=== PATIENT | female | born 1970 | race Caucasian/White ===

== ENCOUNTER 2017-09-10 16:44 | Inpatient (IN) | payer BC, OTHER ==
[~2017-09-10] VITALS: Ht 170.2 cm; Wt 93.4 kg
[2017-09-10] MEDS ORDERED: diphenhydrAMINE 50 MG CAPSULE PO PRN (23:00)
[2017-09-10] MEDS ORDERED: MIRALAX 17 GM POWD.PACK PO PRN (23:00)
[2017-09-10] MEDS ORDERED: LORAZEPAM 1 MG TABLET PO PRN ×2 (23:00)
[2017-09-10] MEDS ORDERED: MAG HYDROX/AL HYDROX/SIMETH 30 ML LIQUID UDC PO PRN (23:00)
[2017-09-10] MEDS ORDERED: ONDANSETRON ODT 4 MG TAB.RAPDIS SL PRN (23:00)
[2017-09-10] MEDS ORDERED: ONDANSETRON 4 MG/2 ML VIAL IM PRN (23:00)
[2017-09-10] MEDS: THIAMINE HCL 100 MG TABLET PO SCH (23:00)
[2017-09-10] MEDS ORDERED: LOPERAMIDE HCL 2 MG CAPSULE PO PRN ×2 (23:00)
[2017-09-10] MEDS ORDERED: LORAZEPAM 2 MG/1 ML VIAL IM PRN (23:00)
--- NOTE | 2017-09-10 23:30 | NUR ---
Pre admission note Pt seen in intake office. Pt noted to be intoxicated but in stable condition. V/S WNL. Policies on medication disposal explained to and understood by patient. Will admit to unit. Will continue to monitor.
--- NOTE | 2017-09-10 23:58 | NUR ---
Admission note Pt is a 47 yo female, A+Ox4, presenting to [facility] for ETOH withdrawal. Pt noted to be intoxicated but in stable condition. Pt appears flush in face, tremulous, anxious, agitated, restless, and notably sweaty. Pt has Allergies to Sulfa, is on Full code status, and on Regular diet. Pt is 5'7" in height and 206 LBS in weight. Pt has medical HX of HTN, Neuropathy, IBSD, Colon resection, Asthma, Depression, Anxiety, GERD, Ileostomy, and Gall bladder removal. Pt has family HX of Kidney replacement and macular degeneration from Father. Pt has a primary care provider named Dr. Joaquin. Pt has been drinking alcohol for 36 years (2 years currently), has reached a level of 1 pint- 2 pints/daily, and last drink was 1 shot and 1 beer on 09-10-17 @2100. Pt has been taking home medications which have all been reconciled in [facility] for MD review. Pt has HX of previous detox/rehab for 30 days @ [facility] in [place], [place] in 2006. Pt states "My last time sober was in 2016 for 18 days. Pt has been a cigarette smoker for 33 years and has reached a level of 20/daily. Pt states "I am here because one of my coworkers and he was a heavy drinker so that is what made me realize that i really need to get help for myself". Pt states " I usually drink myself to sleep so i hope i don't have a hard time sleeping". 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 Pt states "I just don't know how to quit drinking on my own so i am glad to be in a hospital setting where i am safe". Pt noted with an odor of alcohol coming off of her body and very messy hair. V/S WNL. Respirations even and unlabored. Will continue to monitor. Addendum: 09/11/17 at 0533 by ADALBERTO JAY LVN 1-2 pints Mary barrera
[2017-09-11 00:32] LABS: *URINE HCG, QUAL NEGATIVE (NEGATIVE)
[2017-09-11 00:42] LABS: *AMPHETAMINE, URINE NEGATIVE (NEGATIVE); *BARBITURATE, URINE NEGATIVE (NEGATIVE); *CANNABINOID, URINE NEGATIVE (NEGATIVE); *COCCAINE, URINE NEGATIVE (NEGATIVE); *OPIATE, URINE NEGATIVE (NEGATIVE); *PHENCYCLIDINE SCREEN,URINE NEGATIVE (NEGATIVE)
[2017-09-11 00:45] VITALS: BP 165/98
[2017-09-11 00:54] LABS: BASOPHILS # (AUTO) 0.1 K/uL (0.0-8.0); BASOPHILS % (AUTO) 1.1 % (0.0-2.0); EOSINOPHILS # (AUTO) 0.2 K/uL (0.0-0.7); EOSINOPHILS % (AUTO) 3.1 % (0.0-7.0); HEMOGLOBIN 16.3 g/dL (10.9-14.3); LYMPHOCYTES # (AUTO) 3.9 K/uL (20.0-40.0); LYMPHOCYTES % (AUTO) 50.2 % (20.5-51.5); MEAN CORPUSCULAR HEMOGLOBIN 35.3 uug (24.7-32.8); MEAN CORPUSCULAR HGB CONC 35 g/dL (32.3-35.6); MEAN CORPUSCULAR VOLUME 101.8 fL (75.5-95.3); MONOCYTES # (AUTO) 0.6 K/uL (2.0-10.0); MONOCYTES % (AUTO) 8.2 % (0.0-11.0); NEUTROPHILS # (AUTO) 2.9 K/uL (1.8-8.9); NEUTROPHILS % (AUTO) 37.4 % (38.5-71.5); PLATELET COUNT (AUTO) 205 K/uL (179-408); RED BLOOD CELL COUNT(AUTO) 4.62 MIL/uL (3.63-4.92); WHITE BLOOD COUNT (AUTO) 7.7 K/uL (3.8-11.8)
[2017-09-11] MEDS ORDERED: LOSA1TAB36 PO (01:15)
[2017-09-11] MEDS ORDERED: HYDR12.5 PO (01:15)
[2017-09-11] MEDS ORDERED: HYDR50CA5 PO (01:15)
[2017-09-11] MEDS ORDERED: LURA40TA PO (01:15)
[2017-09-11] MEDS ORDERED: ONDA4TAB10 PO (01:15)
[2017-09-11] MEDS ORDERED: MAGN400C PO (01:15)
[2017-09-11] MEDS ORDERED: HYOS0.1273 PO (01:15)
[2017-09-11] MEDS ORDERED: CITA40TA11 PO (01:15)
[2017-09-11] MEDS ORDERED: ERGO2500 PO (01:15)
[2017-09-11] MEDS ORDERED: PREG200C PO (01:15)
[2017-09-11] MEDS ORDERED: OMEP20TA5 PO (01:15)
[2017-09-11] MEDS ORDERED: CHOL4PAC2 PO (01:15)
[2017-09-11] MEDS ORDERED: ALBU8.5H8 IH (01:15)
[2017-09-11 01:16] LABS: BILIRUBIN,TOTAL 0.4 mg/dL (0.2-1.0); CREATININE 1.1 mg/dL (0.6-1.3); TOTAL PROTEIN, SERUM 8.2 g/dL (6.4-8.2)
[2017-09-11] MEDS ORDERED: MAGNESIUM OXIDE 400 MG TABLET PO ONE ×2 (01:30→10:00)
[2017-09-11 01:36] LABS: THYROID STIMULATING HORMONE 0.23 mIU/mL (0.358-3.740)
[2017-09-11] MEDS: hydrALAZINE HCL 50 MG TABLET PO PRN ×2 (02:05→08:35)
--- NOTE | 2017-09-11 02:05 | NUR ---
PRN Hydralazine Pt noted with b/p 165/98. PRN Hydralazine given and tolerated well. Will reassess within 1 HR. Will continue to monitor.
--- NOTE | 2017-09-11 03:02 | NUR ---
PRN Hydralazine Reassessment Medication effective. B/p reduced to 144/88. No s/s of ASE noted at this time. Respirations even and unlabored. Will continue to monitor.
[2017-09-11 04:44] VITALS: BP 149/70
--- NOTE | 2017-09-11 07:00 | NUR ---
End of shift note Newly admitted patient. Pt was continuously noted with anxiety, tremors, restlessness, and agitation. Pt spent majority of shift in room except to get food from the kitchen. Pt was given PRN Hydralazine @0205. Pt slept for a total of 5 HRS. Last CIWA: 6 @0400. Respirations even and unlabored. Will endorse to day shift nurse.
--- NOTE | 2017-09-11 07:30 | NUR ---
START OF SHIFT Pt 47 y/o female admitted for etoh withdrawal. Pt received in room on bed awake. Pt alert and oriented to name, placea, and time. Perrla. Skin warm and moist to touch. Respirations even and unlabored. Bilateral hand tremors noted. Pt anxious and restless this morning. Pt appears disheveled and unkempt. Open empty water bottles scattered throughout the room. Encouraged to maintain hygiene. It was reported that pt slept for 5 hours last night. Last reported ciwa=6 @0400. Pt is on a 5 day ativan taper and is on day 1. Bed on lowest position with side railsx 2 up for safety. Call light within reach.
[2017-09-11 08:00] VITALS: BP 152/84
[2017-09-11] MEDS: MULTIVITAMINS,THERAPEUTIC TABLET PO SCH (08:34)
[2017-09-11] MEDS: LORAZEPAM 1 MG TABLET PO SCH ×4 (08:34→20:45)
[2017-09-11] MEDS: THIAMINE HCL 100 MG TABLET PO SCH (08:35)
[2017-09-11] MEDS: FOLIC ACID 1 MG TABLET PO SCH (08:35)
[2017-09-11] MEDS: IBUPROFEN 400 MG TABLET PO PRN (08:35)
--- NOTE | 2017-09-11 08:42 | NUR ---
PRN Pt with bp =152/84. Hyrdralazine po prn per MD order given and tolerated well.
--- NOTE | 2017-09-11 08:43 | NUR ---
PRN Pt with with c/o generalized pain 5/10. Motrin po prn per MD order given and tolerated well.
[2017-09-11] MEDS ORDERED: TUBERCULIN,PURIF.PROT.DERIV. 5 TU/0.1 ML TEST ID ONE (09:00)
--- NOTE | 2017-09-11 09:43 | NUR ---
PRN EVAL pt observed on bed watching television. Pt states pain 4/10.
--- NOTE | 2017-09-11 09:43 | NUR ---
PRN EVAL Pt with up=082/88.
[2017-09-11 12:16] VITALS: BP 130/85
[2017-09-11] MEDS ORDERED: NICOTINE POLACRILEX 4 MG GUM-PK OF TEN BC PRN (12:30)
[2017-09-11] MEDS ORDERED: NICOTINE 14 MG/24HR PATCH TD PRN (12:30)
[2017-09-11] MEDS: LOSARTAN HCTZ PO SCH (12:47)
[2017-09-11] MEDS: LYRICA 200 MG PO SCH (12:47)
[2017-09-11 17:12] VITALS: BP 132/77
--- NOTE | 2017-09-11 19:05 | NUR ---
END OF SHIFT Pt 47 y/o female admitted for etoh withdrawal. Pt alert and oriented to name, placea, and time. Perrla. Skin warm and moist to touch. Respirations even and unlabored. Bilateral hand tremors noted. Pt anxious and restless this morning. Pt appears disheveled and unkempt. Open empty water bottles scattered throughout the room. Encouraged to maintain hygiene. Pt observed isolative to room throughout the day, mostly watching television. Pt did not attend group activity. Pt was seen by MD today. Pt medication compliant and tolerated well. No ASE noted. Ciwa=11@0900, 12@1200, and 11@1600. Pt is on a 5 day ativan taper and is on day 1. Bed on lowest position with side rails x2 up for safety. Call light within reach.
--- NOTE | 2017-09-11 19:11 | NUR ---
Start of shift note Received report from day shift nurse. Pt is a 47 yo male, A+Ox4, presenting to [facility] for ETOH withdrawal. Pt is on 5 day Ativan toper, tolerated well. Pt has HX of Neuropathy, Asthma, GERD, HTN, anxiety, and depression which will be monitored during shift. Pt noted with anxiety, agitation, and restlessness. Respirations even and unlabored. Will continue to monitor.
[2017-09-11 20:05] VITALS: BP 149/87
[2017-09-11] MEDS ORDERED: PATIENT MAY USE OWN MED- MD OK PO SCH (21:00)
[2017-09-11] MEDS: CHOLESTYRAMINE PO PRN (21:06)
[2017-09-11] MEDS: HYOSCYAMINE 0.125 MG SL PRN (21:07)
--- NOTE | 2017-09-11 21:07 | NUR ---
PRN Cholestyramine and Hyoscyamine Pt c/o abdominal pain, upset stomach, and diarrhea and requested for PRN Cholestyramine and Hyoscyamine. Medications given and tolerated well. Will reassess within 1 HR. Will continue to monitor.
--- NOTE | 2017-09-11 22:07 | NUR ---
PRN Cholestyramine and Hyoscyamine Reassessment Pt expresses reduction in abdominal pain and upset stomach. No s/s of ASE noted at this time. Respirations even and unlabored. Will continue to monitor.
[2017-09-11] MEDS: TRAZODONE 50 MG TABLET PO PRN (23:17)
--- NOTE | 2017-09-11 23:17 | NUR ---
PRN Trazodone Pt c/o inability to sleep and requested for PRN Trazodone. Medication given and tolerated well. Will reassess within 1 HR. Will continue to monitor.
--- NOTE | 2017-09-12 00:15 | NUR ---
PRN Trazodone Reassessment Medication effective. Pt is resting well in bed. No s/s of ASE noted at this time. Respirations even and unlabored. Will continue to monitor.
[2017-09-12 00:37] VITALS: BP 145/87
[2017-09-12 04:38] VITALS: BP 147/82
--- NOTE | 2017-09-12 07:00 | NUR ---
End of shift note Pt was continuously noted to be agitated, anxious, and restless. Pt was out of room frequently to get food from kitchen, to interact with other patients in recreational room, and to go smoke on smoking patio. Pt was given PRN Cholestyramine and Hyoscyamine @2106 and PRN Trazodone @2316. Pt slept for a total of 7 HRS. Last CIWA: 10 @0400. Respirations even and unlabored. Will endorse to day shift nurse.
--- NOTE | 2017-09-12 07:30 | NUR ---
START OF SHIFT Pt 47 y/o female admitted for etoh withdrawal. Pt received in room on bed awake. Pt alert and oriented to name, place, and time. Perrla. Skin warm and moist to touch. Respirations even and unlabored. Bilateral hand tremors noted. Pt anxious and agitated this morning. Pt appears disheveled and unkempt. Food wrappings scattered throughout the room. Encouraged to maintain hygiene. It was reported that pt slept for 7 hours last night. Last reported ciwa=10 @2100. Pt is on a 5 day ativan taper and is on day 2. Bed on lowest position with side rails x 2 up for safety. Call light within reach.
[2017-09-12 07:52] LABS: CREATININE 0.9 mg/dL (0.6-1.3); MAGNESIUM 1.6 mg/dL (1.8-2.4); PHOSPHOROUS 3.8 mg/dL (2.5-4.9); POTASSIUM 3.6 mmol/L (3.5-5.1)
[2017-09-12 08:00] VITALS: BP 135/81
[2017-09-12 08:04] LABS: THYROID STIMULATING HORMONE 0.136 mIU/mL (0.358-3.740)
[2017-09-12] MEDS ORDERED: LOSARTAN HCTZ PO SCH (09:00)
[2017-09-12] MEDS ORDERED: PREGABALIN 200 MG PO SCH (09:00)
[2017-09-12] MEDS: LOSARTAN HCTZ PO SCH (09:15)
[2017-09-12] MEDS: LORAZEPAM 1 MG TABLET PO SCH ×3 (09:15→20:46)
[2017-09-12] MEDS: FOLIC ACID 1 MG TABLET PO SCH (09:15)
[2017-09-12] MEDS: THIAMINE HCL 100 MG TABLET PO SCH (09:15)
[2017-09-12] MEDS: MULTIVITAMINS,THERAPEUTIC TABLET PO SCH (09:15)
[2017-09-12] MEDS: CITALOPRAM 20 MG TABLET PO SCH (09:15)
[2017-09-12] MEDS: OMEPRAZOLE 20MG PO SCH (09:16)
[2017-09-12] MEDS: LYRICA 200 MG PO SCH ×2 (09:16→21:00)
[2017-09-12 11:07] LABS: HEPATITIS B SURFACE AG Negative (Negative)
[2017-09-12] MEDS ORDERED: BENZOCAINE/MENTH/CETYLPYRD LOZENGE MM PRN (11:15)
[2017-09-12 12:00] VITALS: BP 127/75
[2017-09-12] MEDS ORDERED: MAGNESIUM OXIDE 400 MG TABLET PO ONE (12:00)
--- NOTE | 2017-09-12 13:24 | NUR ---
Therapist prompted client to attend all groups while in treatment to increase feelings of being connected to others and not be isolated in bedroom. Therapist explained the benefits of attending groups such as learning new coping tools, learning about feelings/emotions and being able to learn to decrease negative feelings and thoughts.
[2017-09-12 16:00] VITALS: BP 137/85
--- NOTE | 2017-09-12 17:15 | NUR ---
PRN Pt with ciwa=9. Ativan 1mg po prn per MD order given and tolerated well.
--- NOTE | 2017-09-12 18:15 | NUR ---
PRN EVAL Pt with ciwa=4.
--- NOTE | 2017-09-12 18:44 | NUR ---
END OF SHIFT Pt 47 y/o female admitted for etoh withdrawal. Pt alert and oriented to name, placea, and time. Perrla. Skin warm and moist to touch. Respirations even and unlabored. Bilateral hand tremors noted. Pt anxious and restless this morning. Pt appears disheveled and unkempt. Open empty water bottles scattered throughout the room. Encouraged to maintain hygiene. Pt observed mostly isolative to room today. Pt did not attend group activity. Pt was seen by MD today. Pt medication compliant and tolerated well. No ASE noted. Ciwa=9@0900, 4@1200, and 9@1600. Pt is on a 5 day ativan taper and is on day 2. Bed on lowest position with side rails x2 up for safety. Call light within reach.
--- NOTE | 2017-09-12 19:12 | NUR ---
Start of shift note Received report from day shift nurse. Pt is a 47 yo female, A+Ox4, presenting to [facility] for ETOH withdrawal. Pt noted to be anxious, agitated, and restless. Pt has HX of Asthma, Neuropathy, HTN, GERD, Anxiety, and depression which will be monitored during shift. Pt is on 5 day Ativan taper, tolerated well. Respirations even and unlabored. Will continue to monitor.
[2017-09-12 20:33] VITALS: BP 146/86
[2017-09-12] MEDS: TRAZODONE 50 MG TABLET PO PRN (23:09)
--- NOTE | 2017-09-12 23:09 | NUR ---
PRN Trazodone Pt c/o inability to sleep and requested for PRN Trazodone. Medication given and tolerated well. Will reassess within 1 HR. Will continue to monitor.
[2017-09-13 00:35] VITALS: BP 116/62
[2017-09-13 04:13] VITALS: BP 119/68
--- NOTE | 2017-09-13 06:50 | NUR ---
End of shift note Pt was continuously noted with anxiety, agitation, and restlessness. Pt was out of room frequently to get food from kitchen, to go smoke on smoking patio, and to interact with other patients in recreational room. Pt was given PRN Trazodone @2309 for inability to sleep. Medication was effective. No s/s of ASE noted. Pt slept for a total of 8 HRS. Last CIWA: 8 @0400. Respirations even and unlabored. Will endorse to day shift nurse.
--- NOTE | 2017-09-13 07:30 | NUR ---
START OF SHIFT Pt 47 y/o female admitted for etoh withdrawal. Pt received in room on bed with eyes closed resting, but easily arousable to name. Pt alert and oriented to name, place, and time. Perrla. Skin warm and moist to touch. Respirations even and unlabored. Bilateral hand tremors noted. Pt appears disheveled and unkempt. Clothes scattered throughout the room. Encouraged to maintain hygiene. It was reported that pt slept for 8 hours last night. Last reported ciwa=8 @2100. Pt is on a 5 day ativan taper and is on day 3. Bed on lowest position with side rails x 2 up for safety. Call light within reach.
[2017-09-13 08:00] VITALS: BP 129/72
[2017-09-13 08:42] LABS: BASOPHILS % (AUTO) 0.8 % (0.0-2.0); EOSINOPHILS # (AUTO) 0.3 K/uL (0.0-0.7); EOSINOPHILS % (AUTO) 5.6 % (0.0-7.0); HEMATOCRIT 41.8 % (31.2-41.9); HEMOGLOBIN 14.5 g/dL (10.9-14.3); LYMPHOCYTES # (AUTO) 1.8 K/uL (20.0-40.0); LYMPHOCYTES % (AUTO) 30.2 % (20.5-51.5); MEAN CORPUSCULAR HEMOGLOBIN 35.6 uug (24.7-32.8); MEAN CORPUSCULAR HGB CONC 35 g/dL (32.3-35.6); MEAN CORPUSCULAR VOLUME 102.4 fL (75.5-95.3); MONOCYTES # (AUTO) 0.4 K/uL (2.0-10.0); MONOCYTES % (AUTO) 6.8 % (0.0-11.0); NEUTROPHILS # (AUTO) 3.3 K/uL (1.8-8.9); NEUTROPHILS % (AUTO) 56.6 % (38.5-71.5); PLATELET COUNT (AUTO) 152 K/uL (179-408); RED BLOOD CELL COUNT(AUTO) 4.08 MIL/uL (3.63-4.92); WHITE BLOOD COUNT (AUTO) 5.9 K/uL (3.8-11.8)
[2017-09-13 08:50] LABS: CREATININE 0.9 mg/dL (0.6-1.3); MAGNESIUM 1.5 mg/dL (1.8-2.4); POTASSIUM 3.5 mmol/L (3.5-5.1)
--- NOTE | 2017-09-13 09:28 | NUR ---
PRN Pt states has some difficulty breathing. Ventolin inhaler prn per MD order given and tolerated well.
[2017-09-13] MEDS: CITALOPRAM 20 MG TABLET PO SCH (09:29)
[2017-09-13] MEDS: FOLIC ACID 1 MG TABLET PO SCH (09:29)
[2017-09-13] MEDS: THIAMINE HCL 100 MG TABLET PO SCH (09:29)
[2017-09-13] MEDS: LORAZEPAM 1 MG TABLET PO SCH ×2 (09:29→12:04)
[2017-09-13] MEDS: LYRICA 200 MG PO SCH ×2 (09:29→20:42)
[2017-09-13] MEDS: OMEPRAZOLE 20MG PO SCH (09:29)
[2017-09-13] MEDS: MULTIVITAMINS,THERAPEUTIC TABLET PO SCH (09:29)
[2017-09-13] MEDS: LOSARTAN HCTZ PO SCH (09:30)
[2017-09-13] MEDS: CHOLESTYRAMINE PO PRN (09:34)
--- NOTE | 2017-09-13 09:34 | NUR ---
PRN Pt states has some loose stool. Cholestyramine powder mix prn per MD order given and tolerated well.
--- NOTE | 2017-09-13 10:28 | NUR ---
PRN EVAL Pt denies any dyspnea at this time.
--- NOTE | 2017-09-13 10:34 | NUR ---
PRN EVAL Pt denies any loose stool at this time.
[2017-09-13 12:00] VITALS: BP 122/87
[2017-09-13] MEDS ORDERED: MAGNESIUM OXIDE 400 MG TABLET PO ONE (14:00)
[2017-09-13 16:00] VITALS: BP 154/84
[2017-09-13] MEDS ORDERED: LORAZEPAM 1 MG TABLET PO SCH ×2 (17:00→21:00)
[2017-09-13] MEDS: hydrALAZINE HCL 50 MG TABLET PO PRN (17:41)
[2017-09-13] MEDS: HYOSCYAMINE 0.125 MG SL PRN (17:56)
--- NOTE | 2017-09-13 17:59 | NUR ---
PRN Pt states has abd cramp. Hyoscyamine po prn per MD order given and tolerated well.
--- NOTE | 2017-09-13 18:53 | NUR ---
END OF SHIFT Pt 47 y/o female admitted for etoh withdrawal. Pt alert and oriented to name, placea, and time. Perrla. Skin warm and moist to touch. Respirations even and unlabored. Bilateral hand tremors noted. Pt anxious and restless this morning. Pt appears disheveled and unkempt. Clothes scattered throughout the room. Encouraged to maintain hygiene. Pt observed mostly in room this morning. Pt did attend group activity. Pt was seen by MD today. Pt medication compliant and tolerated well. No ASE noted. Ciwa=9@0900, 9@1200, and 9@1600. Pt is on a 5 day ativan taper and is on day 3. Bed on lowest position with side rails x2 up for safety. Call light within reach.
--- NOTE | 2017-09-13 18:53 | NUR ---
AUTUMN ANDERSON Pt denies abd cramps at this time.
--- NOTE | 2017-09-13 19:20 | NUR ---
START OF SHIFT Patient is a 47-year-old female admitted on 09/10/17 for ETOH (vodka) withdrawal. Patient is on a 5-day Ativan taper, today is day 3, patient tolerating well. Last CIWA was 9 per day shift nurse. Patient received the following PRNs: hydralazine, Ventolin inhaler, cholestyramine powder, and hyoscyamine; all noted to be effective by day nurse. Upon assessment, patient appears flushed, make-up smeared, hair unkempt and disheveled. Patient's bed is unmade, clothes wrinkled. Patient verbalizes feeling anxious, feeling tingling and numbness at lower extremities 7/10, and difficulty sleeping. Patient is on fall and seizure precuations with no history of seizure. Safety measures in place, side rails up x2, bed locked in low position, call light within reach. Will continue to monitor.
[2017-09-13 20:00] VITALS: BP 129/75
[2017-09-13] MEDS: TRAZODONE 50 MG TABLET PO PRN (22:26)
[2017-09-13] MEDS: ACETAMINOPHEN 325 MG TABLET PO PRN (22:31)
[2017-09-13] MEDS: IBUPROFEN 400 MG TABLET PO PRN (22:31)
--- NOTE | 2017-09-13 22:31 | NUR ---
PRN TRAZODONE, TYLENOL, & MOTRIN Patient reports difficulty sleeping, and arm/hand muscle pain and soreness, 5/10. PRN Trazodone given PO at 2225, PRN Tylenol and PRN Motrin given PO at 2230. Safety measures in place, side rails up x2, bed locked in low position, call light within reach. Will monitor for effectiveness.
--- NOTE | 2017-09-13 23:31 | NUR ---
PRN TRAZODONE, TYLENOL, & MOTRIN REASSESSMENT Patient is resting in bed with eyes closed. Unable to reassess Tylenol and Motrin at this time, due to patient sleeping. PRN Trazodone effective. Will continue to monitor.
[2017-09-14] VITALS: BP 126/71
--- NOTE | 2017-09-14 | NUR ---
CIWA DEFERRED CIWA deferred due to patient sleeping; to be assessed and scored while patient is awake. Safety measures in place, side rails up x2, be locked in lowest position, call light within reach. Will continue to monitor.
--- NOTE | 2017-09-14 04:00 | NUR ---
VITALS REFUSED, CIWA DEFERRED Patient refused 4AM vitals, CIWA deferred due to patient sleeping; to be assessed and scored while patient is awake. Respirations are even and unlabored, 16/min. Safety measures in place, side rails up x2, be locked in lowest position, call light within reach. Will continue to monitor.
--- NOTE | 2017-09-14 07:04 | NUR ---
END OF SHIFT Patient is a 47-year-old female admitted on 09/10/17 for ETOH (vodka) withdrawal. Patient is on a 5-day Ativan taper, today will be day 4; patient tolerating well. Last CIWA was 12 at 1999. Patient received the following PRNs: trazodone, Motrin and Tylenol; all noted to be effective. Patient slept for 8 hours, total intake was 1,296, void x4, stool x2. Patient is on fall and seizure precautions with no history of seizure. Safety measures in place, side rails up x2, bed locked in low position, call light within reach. Will endorse to day shift.
--- NOTE | 2017-09-14 07:46 | NUR ---
START OF SHIFT NOTE Received report from night nurse, 47 year old female admitted for ETOH withdrawal. Patient cont with her 5 day taper and today is day 4 of her taper tolerating well. per endorsement patient received PRN Tylenol/Motrin/ Trazodone effective per night nurse and patient slept for 8 hours, last CIWA score was 12. Received patient alert awake agitated, anxious, labile facial expression, Bilateral tremors noted. Patient due for scheduled medications. Educated patient with current plan of the day and medications regimen and importance of attending groups and activities with good verbal understanding. Safety measures in place. Will cont with plan of care.
[2017-09-14 08:00] VITALS: BP 111/62
[2017-09-14] MEDS: FOLIC ACID 1 MG TABLET PO SCH (08:24)
[2017-09-14] MEDS: MAGNESIUM OXIDE 400 MG TABLET PO SCH (08:24)
[2017-09-14] MEDS: THIAMINE HCL 100 MG TABLET PO SCH (08:24)
[2017-09-14] MEDS: MULTIVITAMINS,THERAPEUTIC TABLET PO SCH (08:24)
[2017-09-14] MEDS: CITALOPRAM 20 MG TABLET PO SCH (08:24)
[2017-09-14] MEDS: OMEPRAZOLE 20MG PO SCH (08:25)
[2017-09-14] MEDS: LYRICA 200 MG PO SCH ×2 (08:25→20:00)
[2017-09-14] MEDS: LOSARTAN HCTZ PO SCH (08:25)
[2017-09-14] MEDS: HYOSCYAMINE 0.125 MG SL PRN ×2 (08:30→20:56)
--- NOTE | 2017-09-14 08:30 | NUR ---
PRN HYOSCYAMINE Patient was c/o of stomach cramps 5/10. PRN Hyoscyamine 0.125mg SL given as ordered. Will cont to monitor and reassess the patient.
[2017-09-14] MEDS ORDERED: LORAZEPAM 1 MG TABLET PO SCH ×3 (09:00→21:00)
--- NOTE | 2017-09-14 09:00 | NUR ---
HYOSCYAMINE REASSESSMENT Per patient medication was effective stomach cramps subsided to 2/10.
--- NOTE | 2017-09-14 10:40 | NUR ---
Therapist prompted client about group times. Client stated she would attend all groups today.
[2017-09-14 12:00] VITALS: BP 150/90
[2017-09-14] MEDS: hydrALAZINE HCL 50 MG TABLET PO PRN (12:09)
--- NOTE | 2017-09-14 12:09 | NUR ---
PRN HYDRALAZINE Patient's blood pressure noted 150/90, HR-102. PRN Hydralazine 50mg PO administered as ordered. Will cont to monitor and reassess the pt.
--- NOTE | 2017-09-14 13:09 | NUR ---
HYDRALAZINE REASSESSMENT Blood pressure noted 133/79, HR-67. Hydralazine was effective.
[2017-09-14] MEDS: METHOCARBAMOL 500 MG TABLET PO PRN ×2 (13:21→21:27)
--- NOTE | 2017-09-14 13:21 | NUR ---
PRN ROBAXIN Patient c/o of muscle spasms 12/07. PRN Robaxin 500mg PO given as ordered. Will cont to monitor and reassess.
--- NOTE | 2017-09-14 14:21 | NUR ---
ROBAXIN REASSESSMENT Per patient medication was effective muscle cramps subsided to 2/10.
[2017-09-14 16:00] VITALS: BP 138/85
--- NOTE | 2017-09-14 19:03 | NUR ---
END OF SHIFT NOTE Patient presented with anxiety, agitation,body aches,stomach cramps,muscle spasms,sweats,light headed, tremors noted on bilateral hands,elevated blood pressure. Patient admitted for ETOH withdrawal and cont on 5 days Ativan taper. Vital signs WNL. During shift patient received PRN Clonidine 0.1mg PO, Robaxin 500mg PO and Hyoscyamine 0.125mg SL noted to be effective. Skin intact warm and dry to touch. Encourage pt to develop coping skills and utilization of non pharmacological intervention. Patient was encouraged to participates in groups therapy session. Encourage diversional activities to alleviate anxiety. Patient denies any SI/HI. Safety measures in place. Patient endorsed to night nurse in stable condition.
--- NOTE | 2017-09-14 19:30 | NUR ---
START OF SHIFT Patient is a 47-year-old female admitted on 09/10/17 for ETOH (vodka) withdrawal. Patient is on a 5-day Ativan taper, today is day 4; patient is tolerating well. Last CIWA was 12 per day shift nurse. Patient received the following PRNs: hydralazine, Robaxin, and hyoscyamine; all noted to be effective by day nurse. Upon assessment, patient appears flushed, hair is unkempt and disheveled, patient's eye make-up is unevenly applied. Upon speaking with patient, patient reports extremely high levels of anxiety due to "triggers" from AA group this evening. Patient states that she should not have to attend group if it will make her "so upset." Patient is tearful and visibly disturbed. Patient's bed is unmade, clothes are mismatched, food stashed on bedside counter. Patient is on fall and seizure precautions with no history of seizure. Safety measures in place, side rails up x2, bed locked in low position, call light within reach. Will continue to monitor.
[2017-09-14 20:00] VITALS: BP 162/82
--- NOTE | 2017-09-14 20:56 | NUR ---
PRN HYOSCYAMINE Patient reports abdominal cramps, requesting her own med from home. PRN Hyoscyamine given PO. Safety measures in place, side rails up x2, bed locked in lowest position, call light within reach. Will monitor for effectiveness.
[2017-09-14] MEDS: TRAZODONE 50 MG TABLET PO PRN (21:17)
--- NOTE | 2017-09-14 21:17 | NUR ---
PRN TRAZODONE Patient reports difficulty sleeping; PRN Trazodone given PO. Safety measures in place, side rails up x2, bed locked in lowest position, call light within reach. Will monitor for effectiveness.
--- NOTE | 2017-09-14 21:27 | NUR ---
PRN ROBAXIN Patient reports muscle spasms in her left hand/arm. PRN Robaxin given PO. Safety measures in place, side rails up x2, bed locked in lowest position, call light within reach. Will monitor for effectiveness.
--- NOTE | 2017-09-14 21:56 | NUR ---
PRN HYOSCYAMINE REASSESSMENT Patient reports abd cramps have resolved. PRN med effective. Safety measures in place, call light within reach. Will continue to monitor.
--- NOTE | 2017-09-14 22:17 | NUR ---
PRN TRAZODONE REASSESSMENT Patient is resting in bed with eyes closed, respirations even and unlabored. PRN Trazodone effective. Safety measures in place, call light within reach. Will continue to monitor.
--- NOTE | 2017-09-14 22:27 | NUR ---
PRN ROBAXIN REASSESSMENT Patient reports muscles spasms have resolved. PRN Robaxin effective. Safety measures in place, call light within reach. Will continue to monitor.
[2017-09-15] VITALS: BP 118/70
--- NOTE | 2017-09-15 | NUR ---
VITALS REFUSED, CIWA DEFERRED Patient refused midnight vitals, respirations even and unlabored, 16/min. CIWA deferred due to patient sleeping; to be assessed while patient is awake. Safety measures in place, side rails up x2, bed locked in low position, call light within reach. Will continue to monitor.
--- NOTE | 2017-09-15 04:00 | NUR ---
VITALS REFUSED, CIWA DEFERRED Patient refused 4AM vitals, respirations even and unlabored, 16/min. CIWA deferred due to patient sleeping; to be assessed and scored while patient is awake. Safety measures in place, side rails up x2, bed locked in low position, call light within reach. Will continue to monitor.
--- NOTE | 2017-09-15 07:05 | NUR ---
END OF SHIFT Patient is a 47-year-old female admitted on 09/10/17 for ETOH (vodka) withdrawal. Patient is on a 5-day Ativan taper, today will be day 5 of taper; patient is tolerating well. Last CIWA was 15. Patient received PRN Trazodone, Robaxin, and hyoscyamine; PRNs were effective upon reassessment. Patient slept for 8 hours, total intake of 2,395 mL, void x4, stool x0. Patient is on fall and seizure precautions with no history of seizure. Safety measures in place, side rails up x2, bed locked in low position, call light within reach. Will endorse to day shift.
[2017-09-15 08:00] VITALS: BP 120/78
--- NOTE | 2017-09-15 08:00 | NUR ---
START OF SHIFT NOTE Received report from night nurse, 47 year old female admitted for ETOH withdrawal. Patient cont with her 5 day taper tolerating well. per endorsement patient received PRN Trazodone/Robaxin/Hyoscyamine effective per night nurse and patient slept for 8 hours, last CIWA score was 15. Received patient alert oriented x4 patient noted with agitated and stated " please do not bother me i wanted to sleep until 0900". Safety measures in place. Will cont with plan of care.
[2017-09-15] MEDS ORDERED: LORAZEPAM 1 MG TABLET PO SCH (09:00)
[2017-09-15] MEDS: MAGNESIUM OXIDE 400 MG TABLET PO SCH (09:03)
[2017-09-15] MEDS: LORAZEPAM 1 MG TABLET PO SCH ×3 (09:03→20:03)
[2017-09-15] MEDS: MULTIVITAMINS,THERAPEUTIC TABLET PO SCH (09:03)
[2017-09-15] MEDS: FOLIC ACID 1 MG TABLET PO SCH (09:03)
[2017-09-15] MEDS: LOSARTAN HCTZ PO SCH (09:04)
[2017-09-15] MEDS: LYRICA 200 MG PO SCH ×2 (09:04→20:03)
[2017-09-15] MEDS: THIAMINE HCL 100 MG TABLET PO SCH (09:04)
[2017-09-15] MEDS: OMEPRAZOLE 20MG PO SCH (09:04)
[2017-09-15] MEDS: CITALOPRAM 20 MG TABLET PO SCH (09:08)
[2017-09-15] MEDS ORDERED: CLONIDINE HCL 0.1 MG TABLET PO PRN (11:30)
[2017-09-15 12:00] VITALS: BP 133/85
[2017-09-15] MEDS ORDERED: Magnesium Oxide PO (13:43)
[2017-09-15] MEDS ORDERED: CLON0.1T14 PO (13:43)
[2017-09-15] MEDS ORDERED: IBUP-1953 PO (13:43)
[2017-09-15] MEDS ORDERED: TRAZ-144 PO (13:43)
[2017-09-15] MEDS ORDERED: METH500T6 PO (13:43)
[2017-09-15] MEDS ORDERED: PREG200C PO (13:43)
[2017-09-15] MEDS ORDERED: HYDR-3895 PO (13:43)
[2017-09-15] MEDS: METHOCARBAMOL 500 MG TABLET PO PRN ×2 (14:20→23:00)
[2017-09-15] MEDS: HYOSCYAMINE 0.125 MG SL PRN (14:20)
--- NOTE | 2017-09-15 14:20 | NUR ---
PRN ROBAXIN/HYOSCYAMINE Patient c/o of muscle spasms 5/10 and stomach cramps. PRN Robaxin 500mg PO and Hyoscyamine 0.125mg SL as ordered. Will cont to monitor and reassess the pt.
--- NOTE | 2017-09-15 14:50 | NUR ---
HYOSCYAMINE REASSESSMENT Per patient medication was effective stomach cramps subsided to 1/10.
--- NOTE | 2017-09-15 15:20 | NUR ---
ROBAXIN REASSESSMENT Per patient medication was effective muscle cramps subsided to 1/.
[2017-09-15 16:00] VITALS: BP 139/89
[2017-09-15] MEDS: HYDROXYZINE PAMOATE 25 MG CAPSULE PO PRN (16:41)
--- NOTE | 2017-09-15 16:41 | NUR ---
PRN VISTARIL Patient came back from groups complaining of high anxiety and agitation. PRN Vistaril 25mg PO given as ordered. Will cont to monitor and reassess.
--- NOTE | 2017-09-15 17:41 | NUR ---
VISTARIL REASSESSMENT Per patient Vistaril was effective in alleviating her anxiety and felling less agitated.
--- NOTE | 2017-09-15 19:04 | NUR ---
END OF SHIFT NOTE Patient presented with anxiety, agitation, body aches, stomach cramps, muscle spasms, bilateral hand tremors. Patient admitted for ETOH withdrawal and cont on 5 days Ativan taper tolerating well. Vital signs WNL. During shift patient received PRN Robaxin 500mg PO and Hyoscyamine 0.125mg SL ,Vistaril 25mg PO noted to be effective. Skin intact warm and dry to touch. Encourage pt to develop coping skills and utilization of non pharmacological intervention. Patient was encouraged to participates in groups therapy session. Patient noted attended groups. Patient was excused from evening groups due to increased anxiety and pain pt states "She wants to rest'. Encourage diversional activities to alleviate anxiety. Patient denies any SI/HI. Safety measures in place. Patient endorsed to night nurse in stable condition.
--- NOTE | 2017-09-15 19:30 | NUR ---
START OF SHIFT Received 47 year old female patient admitted on 09/10/17 for EOTH withdrawal. Pt is alert and oriented x4. She is currently receiving a 5 day Ativan taper and is tolerating well. Per endorsement, she received PRN Robaxin and Vistaril. Pt noted to be anxious, agitated, and restless with flushed face and complains of bilateral foot pain 10/10, sweats, and difficulty sleeping at night. Last CIWA:11 at 1600. Breathing is even and unlabored, safety measures in place. Will continue to monitor.
[2017-09-15 20:00] VITALS: BP 135/69
[2017-09-15] MEDS: KETOROLAC TROMETHAMINE 30 MG INJ IM PRN (20:04)
--- NOTE | 2017-09-15 20:04 | NUR ---
PRN TORADOL Pt complains of 10/10 achy, throbbing pain in bilateral feet. Pt noted with irritability and facial grimacing. PRN Toradol administered as ordered. Will monitor effectiveness.
--- NOTE | 2017-09-15 20:35 | NUR ---
PRN TORADOL REASSESSMENT PRN medication effective. Pt reports decrease in pain to 6/10 and reports feeling better. Safety measures in place. Will continue to monitor.
[2017-09-15] MEDS: TRAZODONE 50 MG TABLET PO PRN (21:33)
--- NOTE | 2017-09-15 21:33 | NUR ---
PRN TRAZODONE Pt complains of difficulty sleeping. PRN Trazodone administered as ordered. Safety measures in place. Will monitor effectiveness.
--- NOTE | 2017-09-15 22:33 | NUR ---
PRN TRAZODONE REASSESSMENT PRN medication ineffective. Pt still awake, appears drowsy and reports she is ready to sleep soon. Breathing is even and unlabored, safety measures in place. Will continue to monitor.
--- NOTE | 2017-09-15 23:00 | NUR ---
PRN ROBAXIN Pt complains of muscle spasms. PRN Robaxin administered as ordered. Breathing is even and unlabored, safety measures in place. Will monitor effectiveness.
[2017-09-16] VITALS: BP 118/70
--- NOTE | 2017-09-16 | NUR ---
PRN REASSESSMENT PRN Robaxin effective. Pt reports decrease in muscle spasm. Safety measures in place. Will continue to monitor.
[2017-09-16 05:15] VITALS: BP 132/86
[2017-09-16] MEDS: HYDROXYZINE PAMOATE 25 MG CAPSULE PO PRN (05:29)
--- NOTE | 2017-09-16 05:32 | NUR ---
PRN VISTARIL Pt complains of anxiety. Pt noted to be agitated and restless. PRN Vistaril administered as ordered. Safety measures in place. Will continue to monitor.
--- NOTE | 2017-09-16 06:32 | NUR ---
PRN VISTARIL REASSESSMENT PRN medication effective. Pt lying in bed with eyes closed noted to be asleep. Breathing is even and unlabored, safety measures in place. Will continue to monitor.
--- NOTE | 2017-09-16 07:03 | NUR ---
END OF SHIFT Pt is a 47 year old female patient admitted on 09/10/17 for ETOH withdrawal. Pt remains alert and oriented x4. She continues on a modified 5 day Ativan taper. Currently on day 11/01 and tolerating well. She was noted with anxiety, agitation, insomnia, body aches and restlessness during the shift. She received PRN Toradol, Trazodone, Robaxin and Vistaril. She slept a total of 5 hrs, Intake: 1593mL, Void: x3, BM: x3, CIWA:9 at 0500. Breathing is even and unlabored, safety measures in place. Endorsed to AM shift.
--- NOTE | 2017-09-16 07:27 | NUR ---
Start of Shift Notes: Received patient in her room. Awake, alert and oriented x 4. Patient appears angry, and agitated. Encouraged patient to express her feelings and concerns, patient stated "I had a rough night, I heard a thumping noise in my room." Room was checked. No unusual noise was heard. She denies any AV hallucinations and denies any S/I or H/I. Patient was offered to change her rooms but patient said that it was already her last night and will be OK. She verbalized "I will let you know if I change my mind." She is a 47 year old female admitted for ETOH withdrawal. She was placed on modified 5-day Ativan taper as ordered. PRN Toradol, Vistaril, Trazodone, and Robaxin was given during the night. Slept for 5 hours. Last CIWA 9. Educated patient on her current plan of care and her medication regimen. Encouraged oral fluid and encouraged group participation to learn new skills to prevent relapse. Will continue to monitor closely.
[2017-09-16 08:00] VITALS: BP 124/67
[2017-09-16] MEDS: MAGNESIUM OXIDE 400 MG TABLET PO SCH (08:08)
[2017-09-16] MEDS: THIAMINE HCL 100 MG TABLET PO SCH (08:08)
[2017-09-16] MEDS: CITALOPRAM 20 MG TABLET PO SCH (08:08)
[2017-09-16] MEDS: MULTIVITAMINS,THERAPEUTIC TABLET PO SCH (08:08)
[2017-09-16] MEDS: OMEPRAZOLE 20MG PO SCH (08:08)
[2017-09-16] MEDS: FOLIC ACID 1 MG TABLET PO SCH (08:08)
[2017-09-16] MEDS: LOSARTAN HCTZ PO SCH (08:08)
[2017-09-16] MEDS: LYRICA 200 MG PO SCH ×2 (08:08→20:11)
[2017-09-16] MEDS ORDERED: LORAZEPAM 1 MG TABLET PO SCH (09:00)
[2017-09-16] MEDS: KETOROLAC TROMETHAMINE 30 MG INJ IM PRN ×2 (10:04→20:13)
--- NOTE | 2017-09-16 10:04 | NUR ---
Toradol 30 mg IM given: Patient complained of 8/10 pain to lower legs related to neuropathy. Non-pharmacological interventions provided but ineffective. Medicated patient with Toradol 30 mg IM as ordered. Will monitor for effectiveness.
[2017-09-16] MEDS: HYOSCYAMINE 0.125 MG SL PRN (10:10)
[2017-09-16] MEDS: CHOLESTYRAMINE PO PRN (10:10)
--- NOTE | 2017-09-16 10:10 | NUR ---
Cholecystyramine 4 mg/Hyoscyamine 0.125mg PO given: Patient noted with x 2 episodes of diarrhea and abdominal cramping related to IBS. Requested for meds to be given. Medicated patient with Cholecystyramine 4 mg and Hyoscyamine 0.125mg PO as ordered. Oral fluids encouraged. Will continue to monitor closely.
--- NOTE | 2017-09-16 10:34 | NUR ---
Re-assessment: Toradol Per patient, PRN Toradol was effective in reducing bilateral feet pain. She verbalizes her PL is now 3/10.
--- NOTE | 2017-09-16 11:10 | NUR ---
Re-assessment: Cholestyramine/Hyoscyamine Per patient, abdominal cramping and diarrhea has ceased. PRNs were effective.
[2017-09-16 12:00] VITALS: BP 137/72
[2017-09-16 16:00] VITALS: BP 126/73
--- NOTE | 2017-09-16 19:04 | NUR ---
End of Shift Notes: Patient completed her modified 5-day Ativan taper as ordered with discharge plans for tomorrow. Patient tolerated taper well. VS monitored closely. No s/s of hypo/HTN noted noted. On routine Losartan/HCTZ to as ordered. Withdrawal symptoms were closely monitored. Initial CIWA 13, patient presented with anxiety, agitation, gross tremors, and sweating and paresthesia. Last CIWA 9. Per patient, Ativan has been effective in reducing her withdrawal symptoms. On pain management as ordered with Em. PRN Toradol, Hyoscyamine, and Cholestyramine given at 1010 for pain, abdominal cramping and diarrhea related to IBS. Able to participate in group and activities despite her withdrawal symptoms. All needs met and attended. Will continue to monitor closely.
--- NOTE | 2017-09-16 19:30 | NUR ---
START OF SHIFT Received 47 year old female patient admitted on 09/10/17 for ETOH withdrawal. Pt is alert and oriented x4. She completed her 5 day Ativan taper and tolerated well. She is scheduled to be DC tomorrow to [facility]. Per endorsement, she received PRN Toradol, Chlolestyramine, and hyoscyamine. Pt is noted to be restless, anxious and irritable. She complains of muscle spasms, bilateral burning achy foot pain 10/10 and reports difficulty sleeping at night. Breathing is even and unlabored, safety measures in place. Will continue to monitor.
[2017-09-16 20:00] VITALS: BP 150/68
[2017-09-16] MEDS: METHOCARBAMOL 500 MG TABLET PO PRN (20:12)
--- NOTE | 2017-09-16 20:13 | NUR ---
PRN TORADOL/ROBAXIN Pt complains of muscle spasms and bilateral foot pain 10/10. PRN Toradol and Robaxin administered as ordered. Breathing is even and unlabored, safety measures in place. Will continue to monitor effectiveness.
--- NOTE | 2017-09-16 21:13 | NUR ---
PRN REASSESSMENT PRN Toradol and Robaxin effective. Pt reports decrease in muscle spasms and bilateral foot pain 5/10. Breathing even and unlabored, safety measures in place. Will continue to monitor.
[2017-09-16] MEDS: TRAZODONE 50 MG TABLET PO PRN (22:57)
--- NOTE | 2017-09-16 22:57 | NUR ---
PRN TRAZODONE Pt complains of difficulty falling asleep. PRN Trazodone administered as ordered. Breathing even and unlabored, safety measures in place. Will continue to monitor.
--- NOTE | 2017-09-16 23:57 | NUR ---
PRN REASSESSMENT PRN medication ineffective. She is lying in bed, appears drowsy and reports she is going to sleep soon. Respirations 16, breathing is even and unlabored. Will continue to monitor.
[2017-09-17 00:03] VITALS: BP 135/70
--- NOTE | 2017-09-17 04:12 | NUR ---
VITALS REFUSED, CIWA DEFERRED 0400 vitals refused by pt at beginning of shift because pt reports difficulty falling asleep. CIWA deferred, pt lying in bed with eyes closed noted to be asleep. Breathing is even and unlabored, safety measures in place. Will continue to monitor.
--- NOTE | 2017-09-17 07:10 | NUR ---
END OF SHIFT Pt is a 47 year old female patient admitted on 09/10/17 for ETOH withdrawal. She remains alert and oriented x4. She is scheduled to be DC today to [facility]. She was noted to be restless, anxious and irritable. And had complaints of muscle spasms, bilateral burning achy foot pain 10/10 and difficulty sleeping at night during the shift. At 2012 she received PRN Toradol and Robaxin. At 2246 she received PRN Trazodone. She slept a total of 6 hrs, Intake: 2,142. Void: x3, BM:x1. CIWA:7 at 0000. Breathing is even and unlabored, safety measures in place. Endorsed to AM shift.
--- NOTE | 2017-09-17 07:14 | NUR ---
Start Of Shift Report Received Pt is a 47 year old female admitted on 09/10/17 for ETOH withdrawal. Pt is A&Ox4. Pt has completed her 5 day Ativan taper and tolerated well. She is scheduled to be DC Today to [facility]. Pt received PRN Toradol, Robaxin and Trazodone. Medications effective per manufacturing project engineer nurse Pt is noted to be restless, anxious and irritable. Pt slept a total of 6 hours, encouraged pt to drink more fluids to help facilitate detox process. Last CIWA 7 Breathing is even and unlabored, safety measures in place. Will continue to monitor.
[2017-09-17 08:00] VITALS: BP 127/70
[2017-09-17] MEDS: CITALOPRAM 20 MG TABLET PO SCH (08:21)
[2017-09-17] MEDS: MULTIVITAMINS,THERAPEUTIC TABLET PO SCH (08:21)
[2017-09-17] MEDS: FOLIC ACID 1 MG TABLET PO SCH (08:21)
[2017-09-17] MEDS: ACETAMINOPHEN 325 MG TABLET PO PRN (08:21)
[2017-09-17] MEDS: OMEPRAZOLE 20MG PO SCH (08:22)
[2017-09-17] MEDS: LOSARTAN HCTZ PO SCH (08:22)
[2017-09-17] MEDS: MAGNESIUM OXIDE 400 MG TABLET PO SCH (08:22)
[2017-09-17] MEDS: THIAMINE HCL 100 MG TABLET PO SCH (08:22)
[2017-09-17] MEDS: LYRICA 200 MG PO SCH (08:22)
[2017-09-17] MEDS: METHOCARBAMOL 500 MG TABLET PO PRN (09:25)
[2017-09-17] MEDS: KETOROLAC TROMETHAMINE 30 MG INJ IM PRN (09:25)
--- NOTE | 2017-09-17 10:12 | NUR ---
Discharge Note Pt has been discharged to [facility]. All papers and forms carefully explained to pt, Pt reviewed all medications and all papers before signing. Pt signed all discharge paperwork. All personal belongings have been returned. Pts last CIWA before discharge was 2. Pt left facility with all of her belongings and prescriptions at 1000 on 09/17/17.
== END 2017-09-17 10:10 | DRG 895 ==
LOC: SRC 22:33
PROVIDERS: ADMIT Internal Medicine; ATTEND Internal Medicine
PROC: HZ2ZZZZ Detoxification Services for Substance Abuse Treatment (ICD-10-PCS; principal; 2017-09-10)
PROC: HZ41ZZZ Group Counseling for Substance Abuse Treatment, Behavioral (ICD-10-PCS; 2017-09-12)
DX: F10.232 Alcohol dependence with withdrawal with perceptual disturbance (principal); D69.6 Thrombocytopenia, unspecified; E87.2 Acidosis; E87.8 Other disorders of electrolyte and fluid balance, not elsewhere classified; E83.42 Hypomagnesemia; F31.4 Bipolar disorder, current episode depressed, severe, without psychotic features; E87.1 Hypo-osmolality and hyponatremia; G62.1 Alcoholic polyneuropathy; E86.0 Dehydration; I12.9 Hypertensive chronic kidney disease with stage 1 through stage 4 chronic kidney disease, or unspecified chronic kidney disease; Y90.0 Blood alcohol level of less than 20 mg/100 ml; Z90.49 Acquired absence of other specified parts of digestive tract; F41.9 Anxiety disorder, unspecified; K21.9 Gastro-esophageal reflux disease without esophagitis; K58.0 Irritable bowel syndrome with diarrhea; N18.9 Chronic kidney disease, unspecified; Z84.1 Family history of disorders of kidney and ureter; J45.20 Mild intermittent asthma, uncomplicated; E66.9 Obesity, unspecified; Z68.32 Body mass index [BMI] 32.0-32.9, adult; F14.11 Cocaine abuse, in remission; Z79.899 Other long term (current) drug therapy; F17.210 Nicotine dependence, cigarettes, uncomplicated; J02.9 Acute pharyngitis, unspecified; Z91.89 Other specified personal risk factors, not elsewhere classified; E02 Subclinical iodine-deficiency hypothyroidism; E07.81 Sick-euthyroid syndrome
CPT/HCPCS: 36415; 70030-TC; 80307; 83735; 84100; 84443; 84703; 85025; 86403; 86592; 86705; 86803; 87070; 87340; 87400; 87806; G0480; J1885; J3535